=== PATIENT | male | born 1980 ===

== ENCOUNTER 2018-03-27 10:11 | Emergency (ER) | payer OTHER ==
[~2018-03-27] VITALS: Ht 182.9 cm; Wt 136.1 kg
[2018-03-27] MEDS ORDERED: AZOR 5-20 MG T1 EACH (10:38)
== END 2018-03-27 22:20 | disposition home or self-care (01) ==
LOC: ER 10:11
DX: R42 Dizziness and giddiness (principal); E11.9 Type 2 diabetes mellitus without complications